=== PATIENT | female | born 1980 | race Caucasian/White ===

== ENCOUNTER 2016-07-27 18:25 | Emergency (ER) | payer OTHER ==
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
[2016-07-27] MEDS ORDERED: KETOROLAC TROMETHAMINE 60 MG/2 ML VIAL IM ONE (19:02)
[2016-07-27] MEDS ORDERED: ORPHENADRINE CITRATE 30 MG/ML VIAL ONE (19:03)
--- OUTSIDE RECORDS SUMMARY | 2016-07-27 19:13 | XMS REPORT | Continuity of Care Document ---
:1980 Author Organization [facility] ([facility]) Address [address] [place] [address] Phone [phone] Care Team Providers Name Role Phone Unavailable Primary Care Provider Unavailable Source Comments This disclosure is being made pursuant to the Care Everywhere program, applicable federal and state laws, and may not contain all informaitonavailable regarding this patient.[facility] ([facility]) Active Allergies and Adverse Reactions Not on File Current Medications Not on file Active Problems Not on file Social History Tobacco Use Types Packs/Day Years Used Date Never Assessed Plan of Care Health Maintenance Due Date Last Done Comments Hepatitis B Vaccine (1 of 3 - Primary Series) 1980 Tdap Vaccine 1993 Lipid Disorder Screening 2000 MMR Vaccine 2000 Td Vaccine 2000 Varicella Vaccine (1 of 2 - Adult - No Evidence of 2000 Immunity) Cervical Cancer Screening 2012 Influenza Vaccine: Seasonal (#1) 10/18/2015 Results from Last 3 Months Not on file
[2016-07-27] MEDS: KETOROLAC TROMETHAMINE 60 MG/2 ML VIAL IM ONE (19:15)
[2016-07-27] MEDS: ORPHENADRINE CITRATE 30 MG/ML VIAL IM ONE (19:15)
[2016-07-27 21:11] VITALS: BP 129/90
== END 2016-07-27 20:45 | disposition home or self-care (01) ==
LOC: ER 18:25
DX: M54.89 Other dorsalgia (principal); S13.4XXA Sprain of ligaments of cervical spine, initial encounter; V89.2XXA Person injured in unspecified motor-vehicle accident, traffic, initial encounter; Y92.410 Unspecified street and highway as the place of occurrence of the external cause; V49.40XA Driver injured in collision with unspecified motor vehicles in traffic accident, initial encounter; F90.9 Attention-deficit hyperactivity disorder, unspecified type